=== PATIENT | female | born 1955 | race Caucasian/White ===

== ENCOUNTER 2020-12-02 19:25 | Inpatient (IN) | payer OTHER ==
[~2020-12-02] VITALS: Ht 162.6 cm; Wt 74.1 kg
[~2020-12-02 19:25] MED LIST changes: -ACETAMINOPHEN325 M1 PO; -AUGMENTIN 875-1 EACH PO; -LIPITOR 40 MG T40 M1 PO; -ONDANSETRON HCL4 M3 DISSOLVE
[2020-12-02 19:26] VITALS: BP 121/76
[2020-12-02 20:57] LABS: ABSOLUTE NEUTROPHILS 13.8 thou/uL (1.4-8.2); BASOPHILS 0.4 % (0.0-2.0); EOSINOPHILS 0.1 % (0.0-3.0); HEMATOCRIT 34.2 % (37.0-47.0); LYMPHOCYTES 5.5 % (24.0-44.0); MCH 24.8 pg (26.0-34.0); MCHC 32.2 g/dL (28.0-37.0); MONOCYTES 7.7 % (1.0-8.0); PLATELET COUNT 240 thou/uL (150-400); POLYS 86.3 % (36.0-66.0); RBC 4.44 mil/uL (4.20-5.00); RDW 15.9 % (10.5-14.5)
[2020-12-02 21:10] LABS: ANION GAP 12 mmol/L (7-16); BUN 9 mg/dL (7-18); CALCIUM 8.4 mg/dL (8.5-10.1); CHLORIDE 102 mmol/L (98-107); CO2 23 mmol/L (21-32); GLUCOSE 119 mg/dL (74-106); POTASSIUM 3.6 mmol/L (3.5-5.1); SODIUM 137 mmol/L (136-145)
[2020-12-02 21:22] LABS: ALBUMIN 3.6 g/dL (3.4-5.0); SGOT 34 U/L (15-37); SGPT 38 U/L (30-65); TOTAL BILIRUBIN 0.6 mg/dL (0.2-1.0); TOTAL PROTEIN 6.9 g/dL (6.4-8.2); TROPONIN-I <0.06 ng/mL (<0.06)
[2020-12-02 23:25] VITALS: BP 123/74
[2020-12-03 00:02] VITALS: BP 109/69
[2020-12-03 00:15] VITALS: BP 100/67
[2020-12-03] MEDS ORDERED: LIPITOR 40 MG T40 M1 PO (01:25)
--- NOTE | 2020-12-03 02:45 | NUR ---
0010 ADMITTED FROM ER PER CART. ORIENTED TO ROOM AND FLOOR POLICIES. REVIEWED PLAN OF CARE FOR NOC. ADMISSION PROCESS INITIATED AND COMPLETED. OBSERVED UP IN ROOM WITH STEADY GAIT. DENIES COMPLAINTS OF PAIN, N/V, SHORTNESS OF AIR AT THIS TIME. OCCASIONAL COUGH PUT NON PRODUCTIVE. 0300 RESTING QUIETLY WITH EYES CLOSED WITHOUT COMPLAINTS. STATES IS FEELING BETTER. CONTINUE TO ASSES CLOSELY.
[2020-12-03 05:08] LABS: HEMATOCRIT 30.9 % (37.0-47.0); MCHC 32.5 g/dL (28.0-37.0); MCV 77.1 fL (80.0-100.0); WBC 13.9 thou/uL (4.0-11.0)
[2020-12-03 05:18] LABS: CALCIUM 8.2 mg/dL (8.5-10.1); POTASSIUM 3.3 mmol/L (3.5-5.1)
--- NOTE | 2020-12-03 07:25 | EKG ---
[place] [address] [facility] [place] [address] ELECTROCARDIOGRAM REPORT Name: MATTIE GONZALEZ Room #: 215-P ADM IN M.R.#: [id number] Admission: 12/02/20 Attend Phys: Merrill Cantrell MD Discharge: Date of : 51 Report #: [id number] [facility] ED Test Date: 2020-12-02 Test Time: 20:32:19 Pat Name: MATTIE GONZALEZ Department: Room: [facility] Gender: F Process Line Operator: CRISTINA : 1955 Requested By: Genna Mejias Order Number: [id number] MD: David Morris Measurements Intervals [place] Rate: 90 P: 34 AK: 171 QRS: 66 QRSD: 96 T: -15 QT: 371 QTc: 454 Interpretive Statements Sinus rhythm Borderline low voltage, extremity leads Nonspecific T abnormalities, anterior leads Compared to ECG 07/10/2003 07:09:07 No significant changes Electronically Signed On 12-03-2020 7:25:36 CDT by David Morris [email or web address] <ELECTRONICALLY SIGNED> By: David Morris MD, [facility] 12/03/20724 31 31 David Morris MD, FACC /EPI
[2020-12-03 07:40] VITALS: BP 96/58
[2020-12-03 08:32] VITALS: BP 116/64
--- NOTE | 2020-12-03 20:07 | NUR ---
RECEIVED THE PATIENT CONSCIOUS AND ORIENTED.ON ROOM AIR BREATHING SPONTANEOSULY.NOT IN PAIN OR DISTRESS.ALL NEEDS ATTENDED.
[2020-12-03 21:48] VITALS: BP 112/95
[2020-12-04 03:05] LABS: HEMATOCRIT 29.9 % (37.0-47.0); HEMOGLOBIN 9.8 gm/dL (12.0-15.0); MCH 25.5 pg (26.0-34.0); MCHC 32.7 g/dL (28.0-37.0); RBC 3.83 mil/uL (4.20-5.00); RDW 16.3 % (10.5-14.5); WBC 8.6 thou/uL (4.0-11.0)
--- NOTE | 2020-12-04 03:55 | NUR ---
RESTING QUIETLY WITHUOT PRESENT COMPLAINTS. WORKING ON GOALS AND PLAN OF CARE FOR NOC. UP WITH SBA IN ROOM WITH STEADY GATE. STATES STILL HAS DRY COUGH BUT NO N/V. PROGRESSING SLOWLY. CONTINUE TO ASSES.
[2020-12-04 04:54] LABS: CALCIUM 8.1 mg/dL (8.5-10.1); CREATININE 1.1 mg/dL (0.6-1.0); MAGNESIUM 2.1 mg/dL (1.8-2.4); POTASSIUM 4.2 mmol/L (3.5-5.1)
[2020-12-04 05:02] VITALS: BP 127/73
[2020-12-04 08:00] VITALS: BP 117/68
[2020-12-04] MEDS ORDERED: ACETAMINOPHEN325 M1 PO (12:54)
[2020-12-04] MEDS ORDERED: AUGMENTIN 875-1 EACH PO (12:54)
[2020-12-04] MEDS ORDERED: NEXIUM 24HR20 M1 PO (12:54)
[2020-12-04] MEDS ORDERED: PAXIL40 MG PO (12:54)
[2020-12-04] MEDS ORDERED: ONDANSETRON HCL4 M3 DISSOLVE (12:54)
[2020-12-04 13:15] VITALS: BP 117/68
--- NOTE | 2020-12-04 16:24 | NUR ---
ASSUMED CARE SHIFT CHANGE. VSS C/O NECK PAIN TYELNOL GIVEN. C/O NAUSEA, ZOFRAN ADMINISTERED WITH RELIEF. PT UP WALKING GONZALES WELL. DAUGHTER PRESENT AT BEDSIDE. DC ORDERS. DISCUSSED WITH DAUGHTER AND PT, COMMUNICATES UNDERSTANDING. O2 SATS WNL ROOM AIR. IV REMOVED .TELE REMOVED. PT LEFT UNIT WITH ALL BELONGINGS.
== END 2020-12-04 16:26 | disposition home or self-care (01) | DRG 177 ==
LOC: ER 19:25 → 2N 22:37 → EROBS 22:37 → 2N 23:57
PROVIDERS: Nurse Practitioner Family; Physician Assistant; ADMIT Internal Medicine; ATTEND Internal Medicine
DX: J69.0 Pneumonitis due to inhalation of food and vomit (principal); J96.01 Acute respiratory failure with hypoxia; I10 Essential (primary) hypertension; K21.9 Gastro-esophageal reflux disease without esophagitis; E78.5 Hyperlipidemia, unspecified; F32.9 Major depressive disorder, single episode, unspecified; E87.6 Hypokalemia; D64.9 Anemia, unspecified; I25.10 Atherosclerotic heart disease of native coronary artery without angina pectoris; Z20.822 Contact with and (suspected) exposure to COVID-19; F41.9 Anxiety disorder, unspecified; Z87.891 Personal history of nicotine dependence; I25.2 Old myocardial infarction; Z95.5 Presence of coronary angioplasty implant and graft; Z88.1 Allergy status to other antibiotic agents; Z88.8 Allergy status to other drugs, medicaments and biological substances; Z79.899 Other long term (current) drug therapy
CPT/HCPCS: 10081

== ENCOUNTER → 2020-12-02 | Outpatient (CLI) | payer OTHER ==
[~2020-12-02] VITALS: Ht 162.6 cm; Wt 68.0 kg
[~2020-12-02] MED LIST: ACETAMINOPHEN325 M1 PO; AMLODIPINE-BEN1 EAC3 PO; ASA81BEC PO; AUGMENTIN 875-1 EACH PO; CRESTOR40 MG PO; FAMOTIDINE 20 M20 MG PO; FISH OIL 1,0001 EAC9 PO; KLONOPIN0.5 MG PO; LIPITOR 40 MG T40 M1 PO; NEXIUM 24HR20 M1 PO; ONDANSETRON HCL4 M3 DISSOLVE; PAXIL40 MG PO; VITAMIN D325 MC5 PO
--- NOTE | 2020-12-05 17:07 | PATH ---
[facility] [address] [place] [address] PATHOLOGY RPT PROCEDURE Name: CHINMAY HACKETT Room #: REG [facility].#: [id number] Admission: 12/02/20 Date of : 51 Discharge: Report #: [id number] Path Case #: [id number] [facility] Accession Number: [id number] . 01 Material submitted: . PART A: cecum - CECAL POLYP PART B: colon - ASCENDING COLON POLYP. Modifiers: ascending PART C: colon - TRANSVERSE COLON POLYP. Modifiers: transverse . 01 Clinical history: . . EGD AND COLONOSCOPY/REFLUX,GERD,VOMITING,SCREENING . 02 Diagnosis: A. Polyp, cecal polyp, endoscopic biopsy: - Tubular adenoma. - Negative for high grade dysplasia. . B. Polyp, ascending colon polyp, endoscopic biopsy: - Tubular adenoma. - Negative for high grade dysplasia. . C. Polyp, transverse colon polyp, endoscopic biopsy: - Hyperplastic polyp. - Negative for dysplasia. . (IUV:mml; 12/05/2020) QLM 12/05/2020 1339 Local . 02 Electronically signed: . Bella Jay MD, Pathologist NPI- [id number] . 01 Gross description: . A. The specimen is received in formalin, labeled "Chinmay Hackett, cecal polyp". Received is a segment of pale walters tissue measuring 0.7 cm in maximum dimensions. The specimen is submitted entirely in cassette A1. . B. The specimen is received in formalin, labeled "Chinmay Hackett, ascending colon polyp". Received are two segments of pale walters tissue measuring 0.3 and 0.6 cm in maximum dimensions. The specimen is submitted entirely in cassette B1. . C. The specimen is received in formalin, labeled "Chinmay Hackett, transverse colon polyp". Received are four segments of pale walters tissue ranging in size from 0.4-0.9 cm in maximum dimensions. The specimen is submitted entirely in [place] [address] PATHOLOGY RPT PROCEDURE Name: CHINMAY HACKETT [id number] Admission: 12/02/20 Date of : 51 Discharge: Report #: [id number] Path Case #: [id number] (CAA; 12/04/2020) QA/QA 12/04/[address] [place] [address] . 02 Pathologist provided ICD-10: D12.0, D12.2, K63.5 . 02 CPT . 117796, 927384, [id number] Specimen Comment: A courtesy copy of this report has been sent to [phone] Specimen Comment: [phone] Specimen Comment: Report sent to / DR JOHNSON Performed at: [address] [facility], [place], [place] [id number] MD Marquez Keenan MD Phone: [phone] Performed at: [address] [id number] MD Bella Jay MD Phone: [phone]
== END ==
LOC: GI 09:34
PROVIDERS: ATTEND Internal Medicine Gastroenterology
DX: Z12.11 Encounter for screening for malignant neoplasm of colon (principal); D12.0 Benign neoplasm of cecum; D12.2 Benign neoplasm of ascending colon; D12.3 Benign neoplasm of transverse colon; K57.30 Diverticulosis of large intestine without perforation or abscess without bleeding; K64.8 Other hemorrhoids
CPT/HCPCS: 62110; 62900

== ENCOUNTER → 2020-12-16 | Outpatient (CLI) | payer OTHER ==
[~2020-12-16] MED LIST changes: +ACETAMINOPHEN325 M1 PO; +AUGMENTIN 875-1 EACH PO; +LIPITOR 40 MG T40 M1 PO; +ONDANSETRON HCL4 M3 DISSOLVE
== END ==
LOC: RAD 16:50
PROVIDERS: ATTEND Nurse Practitioner
DX: J69.0 Pneumonitis due to inhalation of food and vomit (principal)

== ENCOUNTER → 2021-01-27 | Outpatient (CLI) | payer OTHER ==
--- NOTE | 2021-02-02 21:14 | SLE ---
[facility] [place] [address] [place] [address] POLYSOMNOGRAPHY STUDY Name: MATTIE GONZALEZ Room #: REG [facility]#: [id number] Admission: 01/27/21 Attend Phys: Rayshawn Marroquin MD Discharge: Date of : 51 Report #: [id number] THIS REPORT FOR: cc: Kinjal Vo DNP, Mary E. DNP Khan, Aman U. MD ~ cc: SHERLYN Phillips DATE OF SERVICE: 01/27/2021 SLEEP STUDY REFERRING PHYSICIAN: Kinjal Vo. The patient is a 65-year-old who weighs 150 pounds with a BMI of 25.7. The patient's Clarinda score was 22, suggestive of severe hypersomnia. The patient underwent diagnostic sleep study performed at [facility]. During the night study, the patient spent 418 minutes in bed and slept for 408 minutes with a sleep efficiency of 86%. Sleep latency was 10 minutes with a REM latency of 57 minutes. Sleep architecture showed increased stage I and stage II sleep, reduced slow wave and reduced REM sleep. During the night study, the patient had 14 obstructive apneas, no mixed or central apneas. The patient had 81 hypopneas. The patient's AHI was 15.7 per hour with a REM AHI of 12.7 per hour and a supine AHI of 84 per hour. EKG monitoring revealed an average heart rate of 68 beats per minute. No sustained arrhythmias observed. PLMs were seen at an index of 7 per hour and 1.8 per hour caused EEG arousals. Nocturnal oximetry study revealed an average oxygen saturation of 94%, the lowest of 79%. 8 minutes were spent with oxygen saturation of less than 89%. Due to low AHI, the patient did not meet the split night criteria for CPAP initiation. IMPRESSION: 1. Moderate obstructive sleep apnea at an AHI of 15.7 per hour with worsening during supine sleep with a supine AHI of 84 per hour. 2. Mild nocturnal hypoxia secondary to obstructive sleep apnea. 3. No clinically significant PLMs. RECOMMENDATIONS: 1. The patient is clinically symptomatic with severe subjective hypersomnia [facility] [address] [place] [address] POLYSOMNOGRAPHY STUDY Name: MATTIE GONZALEZ Room #: REG [facility]#: [id number] Admission: 01/27/21 Attend Phys: Rayshawn Marroquin MD Discharge: Date of : 51 Report #: [id number] with an Clarinda score of 22. The patient would benefit from return to the sleep lab for CPAP titration study. 2. Once the patient is optimally treated with CPAP, then followup in 4-6 weeks to assess compliance and to document clinical improvement. 3. Avoid supine sleep. 4. Avoid [employer] depressants. 5. Cautioned regarding driving until the patient's sleep apnea resolved with above recommendations. <ELECTRONICALLY SIGNED> By: Rayshawn Marroquin MD 02/02/21 2114 1604 1745 Rayshawn Marroquin MD /marixa
== END ==
LOC: SLEEPLAB 16:18
PROVIDERS: ATTEND Internal Medicine Critical Care Medicine
DX: Z01.812 Encounter for preprocedural laboratory examination (principal); G47.33 Obstructive sleep apnea (adult) (pediatric); R09.02 Hypoxemia; Z20.822 Contact with and (suspected) exposure to COVID-19